=== PATIENT | female | born 1960 | race Two or more races ===

== ENCOUNTER 2024-09-10 06:05 | Day surgery (SDC) | payer OTHER ==
[2024-09-09 08:34] LABS: HEMATOCRIT 40.4 % (36.0-45.00); HEMOGLOBIN 13.6 g/dL (12.0-15.00); MEAN CORPUSCULAR HGB CONC 33.7 g/dl (32.0-36.0); PLATELET COUNT 201 K/uL (150-450); RED BLOOD COUNT 4.54 M/uL (4.00-6.00); RED CELL DISTRIBUTION WIDTH 13.2 % (11.5-14.5)
[2024-09-09 08:37] LABS: URINE APPEARANCE Cloudy; URINE BILIRRUBIN Negative (NEGATIVE); URINE BLOOD NHT; URINE COLOR Yellow; URINE GLUCOSE Negative (NEGATIVE); URINE KETONE Negative (NEGATIVE); URINE LEUKOCYTE Negative; URINE NITRATE Negative; URINE PROTEIN Negative (NEGATIVE); URINE UROBILINOGEN 0.2 E.U./dl
[2024-09-09 08:42] LABS: URINE BACTERIA 138.5 uL (0.0-1933); URINE EPITHELIAL CELLS 13.4 uL (0.0-38.8); URINE WBC 2.7 uL (0.0-23.2)
[2024-09-09 08:58] LABS: INR 1.01; PARTIAL THROMBOPLASTIN TIME 28.2 SECONDS (22.0-34.0)
[2024-09-09 09:10] LABS: ALBUMIN 3.9 gm/dL (3.4-5.0); BILIRUBIN TOTAL 0.62 mg/dL (0.3-1.2); CREATININE SERUM 0.76 mg/dL (0.55-1.02); GFR 76.37; POTASSIUM 4.67 mEq/L (3.5-5.1); TOTAL PROTEIN 6.9 gm/dL (6.4-8.2)
[~2024-09-10 06:05] MED LIST: [UNRECOGNIZED DRUG - OTHER] PO
[2024-09-10] MEDS ORDERED: CHLORHEXIDINE GLUCONATE 120 ML BOTTLE TOP ONE (12:45)
[2024-09-10] MEDS ORDERED: CEFAZOLIN SODIUM 1,000 MG VIAL IV ONE (12:45)
[2024-09-10] MEDS ORDERED: MORPHINE SULFATE 4 MG/ML VIAL IV ONE ×2 (13:50)
== END 2024-09-10 15:25 | disposition home or self-care (01) ==
LOC: U 06:05 → CIR.AMB 06:05
PROVIDERS: ATTEND Surgery
DX: D24.2 Benign neoplasm of left breast (principal); D48.62 Neoplasm of uncertain behavior of left breast